=== PATIENT | male | born 1965 | race African-American/Black ===

== ENCOUNTER 2017-02-23 03:55 | Emergency (ER) | payer OTHER ==
[~2017-02-23] VITALS: Ht 167.6 cm; Wt 96.6 kg
[~2017-02-23 03:55] MED LIST: CARAFATE100 MG/ML PO; ENDOCET 5-3251 EACH PO; FENTANYL1 EAC4; FLEXERIL10 MG PO; Flexeril PO; INDOCIN25 MG PO; LOVASTATIN40 MG PO; METHOCARBAMOL500 MG PO; MEVACOR20 MG PO; Mevacor PO; NOHOMEMEDS; OXYCODONE HCL10 MG PO; PERCOCET 5/31 TABLET PO; Percocet 5/325,Endoc PO; RANITIDINE HCL300 MG; TALADINE300 MG PO; TIZANIDINE HCL4 MG PO; TYLENOL REGULA325 MG PO; ZANTAC300 MG PO; Zantac PO
[2017-02-23] MEDS ORDERED: PREDNISONE50 MG PO (05:39)
[2017-02-23] MEDS ORDERED: AUGMENTIN875 MG PO (05:39)
[2017-02-23 06:15] VITALS: BP 151/92
== END 2017-02-23 06:22 | disposition home or self-care (01) ==
LOC: EME 03:55
DX: K12.2 Cellulitis and abscess of mouth (principal); B34.9 Viral infection, unspecified; R00.0 Tachycardia, unspecified; E78.00 Pure hypercholesterolemia, unspecified; F17.200 Nicotine dependence, unspecified, uncomplicated
CPT/HCPCS: 87651 90; 99281; 99284; J1100

== ENCOUNTER 2017-07-28 16:24 | Emergency (ER) | payer OTHER ==
[~2017-07-28] VITALS: Ht 167.6 cm; Wt 94.4 kg
[~2017-07-28 16:24] MED LIST changes: +AUGMENTIN875 MG PO; +PREDNISONE50 MG PO
[2017-07-28] MEDS ORDERED: FLONASE16 G1 BOTH NARES (16:44)
[2017-07-28] MEDS ORDERED: VENTOLIN HFA18 GM IH (18:44)
[2017-07-28] MEDS ORDERED: ZITHROMAX Z-PA250 MG PO (18:44)
[2017-07-28] MEDS ORDERED: PREDNISONE20 MG PO (18:44)
[2017-07-28 19:05] VITALS: BP 135/87
== END 2017-07-28 19:06 | disposition home or self-care (01) ==
LOC: EME 16:24
DX: J06.9 Acute upper respiratory infection, unspecified (principal); K21.9 Gastro-esophageal reflux disease without esophagitis; E78.5 Hyperlipidemia, unspecified; R73.03 Prediabetes; G47.30 Sleep apnea, unspecified; G89.29 Other chronic pain; F17.200 Nicotine dependence, unspecified, uncomplicated; Z88.8 Allergy status to other drugs, medicaments and biological substances
CPT/HCPCS: 71020; 94640; 99281; 99283; J7512